=== PATIENT | male | born 1990 | race American Indian/Alaskan Native ===

== ENCOUNTER 2021-11-05 10:38 | Emergency (ER) | payer OTHER ==
[~2021-11-05] VITALS: Ht 177.8 cm; Wt 115.7 kg
[2021-11-05] MEDS ORDERED: METFORMIN HCL500 MG PO (10:52)
[2021-11-05] MEDS ORDERED: IBUPROFEN200 MG PO (10:53)
== END 2021-11-05 11:29 | disposition home or self-care (01) ==
LOC: ED 10:38
DX: S60.221A Contusion of right hand, initial encounter (principal); W50.0XXA Accidental hit or strike by another person, initial encounter; Z88.1 Allergy status to other antibiotic agents; Z79.84 Long term (current) use of oral hypoglycemic drugs
CPT/HCPCS: 73130; 99283-25

== ENCOUNTER 2021-11-06 21:22 | Emergency (ER) | payer OTHER ==
[~2021-11-06] VITALS: Ht 177.8 cm; Wt 118.8 kg
[~2021-11-06 21:22] MED LIST: IBUPROFEN200 MG PO; METFORMIN HCL500 MG PO
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
[2021-11-07] MEDS ORDERED: INDOMETHACIN50 MG PO (00:20)
== END 2021-11-07 00:38 | disposition home or self-care (01) ==
LOC: ED 21:22
DX: S60.221A Contusion of right hand, initial encounter (principal); Y04.0XXA Assault by unarmed brawl or fight, initial encounter; E11.9 Type 2 diabetes mellitus without complications; Z88.1 Allergy status to other antibiotic agents; Z79.84 Long term (current) use of oral hypoglycemic drugs
CPT/HCPCS: 99283-25

== ENCOUNTER 2023-01-02 21:22 | Emergency (ER) | payer OTHER ==
[~2023-01-02] VITALS: Ht 177.8 cm; Wt 120.7 kg
[~2023-01-02 21:22] MED LIST changes: +INDOMETHACIN50 MG PO
[2023-01-02] MEDS ORDERED: ONDANSETRON ODT8 MG PO (23:08)
== END 2023-01-02 23:40 | disposition home or self-care (01) ==
LOC: ED 21:22
DX: K52.9 Noninfective gastroenteritis and colitis, unspecified (principal); E11.9 Type 2 diabetes mellitus without complications; Z88.1 Allergy status to other antibiotic agents; Z79.899 Other long term (current) drug therapy; Z79.84 Long term (current) use of oral hypoglycemic drugs
CPT/HCPCS: 36415; 80053; 81001; 83690; 85025; 96374; 99284-25; A9270; J2405; J7030